=== PATIENT | male | born 1970 | race Caucasian/White ===

== ENCOUNTER 2019-09-09 23:55 | Emergency (ER) | payer OTHER ==
[2019-09-09] MEDS ORDERED: DEXAMETHASONE SOD PHOSPHATE 10 MG/1 ML VIAL IM ONE (23:57)
[2019-09-09] MEDS ORDERED: ALBUTEROL SO4 0.083% IH SOL 2.5 MG/3 ML VIAL.NEB. NEB ONE (23:57)
--- NOTE | 2019-09-10 00:04 | PDOC ---
History of Present Illness - General Chief Complaint: Asthma Stated Complaint: ASTHMA History Source: Patient, Unavil. due to pt. cond. - History of Present Illness Initial Comments: 09/10/19 04:50 asthma exacerbation, worse acutely Is this a multiple visit Asthma Patient?: Yes Timing/Duration: reports: just prior to arrival Severity: reports: moderate Possible Cause: Yes: occasional episodes Modifying Factors: improves with: albuterol inhaler Associated Symptoms: denies: fever/chills Past History - Past Medical History Allergies/Adverse Reactions: Allergies Allergy/AdvReac Type Severity Reaction Status Date / Time No Known Allergies Allergy Verified 09/10/19 00:18 Home Medications: Ambulatory Orders Fluticasone/Vilanterol [Breo Ellipta 100-25 Mcg INH] 1 each IH DAILY 09/10/19 Prednisone 40 mg PO DAILY #27 tablet 09/10/19 Salmeterol/Fluticasone [Advair 100Mcg/50Mcg -] 1 inh PO BID 09/10/19 Other medical history: asthma Respiratory Specific PMHX - Complaint Specific PMHX Hx Airway Support: No Hx Intubation: No Hx Asthma: Yes Hx Smoking Exposure: No Review of Systems - Review of Systems All Other Systems: Reviewed and Negative *Physical Exam - Physical Exam General Appearance: Yes: Nourished, Appropriately Dressed HEENT: negative: Pharyngeal Erythema, Tonsillar Exudate Neck: negative: Lymphadenopathy (R), Lymphadenopathy (L) Respiratory/Chest: positive: Wheezing Cardiovascular: positive: Regular Rhythm Gastrointestinal/Abdominal: negative: Tender Musculoskeletal: positive: Normal Inspection Extremity: positive: Normal Capillary Refill Integumentary: positive: Normal Color Medical Decision Making - Medical Decision Making 09/10/19 04:58 AAE steroids, bronchodilator at the time of ED discharge, [id number] amb in ED without distress Discharge - Discharge Information Problems reviewed: Yes Clinical Impression/Diagnosis: Asthma Qualifiers: Asthma severity: moderate Asthma persistence: unspecified Asthma complication type: with acute exacerbation Qualified Code(s): J45.901 - Unspecified asthma with (acute) exacerbation Condition: Stable Disposition: HOME - Additional Discharge Information Prescriptions: Prednisone 40 mg PO DAILY #27 tablet - Follow up/Referral - Patient Discharge Instructions Patient Printed Discharge Instructions: Asthma -- Adult - Post Discharge Activity
[2019-09-10 00:25] VITALS: TEMP 97.6; BMI 25.9
[2019-09-10 00:56] VITALS: BP 148/92; PULSE 94
== END 2019-09-10 02:00 | disposition home or self-care (01) ==
LOC: FER 23:55
PROC: 3E023GC Introduction of Other Therapeutic Substance into Muscle, Percutaneous Approach (ICD-10-PCS; principal; 2019-09-09)
PROC: 3E0F7GC Introduction of Other Therapeutic Substance into Respiratory Tract, Via Natural or Artificial Opening (ICD-10-PCS; 2019-09-09)
DX: J45.901 Unspecified asthma with (acute) exacerbation (principal)
CPT/HCPCS: 99281-25; J1100

== ENCOUNTER 2022-12-12 20:49 | Emergency (ER) | payer OTHER ==
[2022-12-12] MEDS ORDERED: predniSONE 20 MG TABLET (UD) PO ONE (21:00)
[2022-12-12] MEDS ORDERED: predniSONE 20 MG TABLET (UD) ONE (21:01)
[2022-12-12] MEDS ORDERED: ALBUTEROL SO4 2.5/IPRATROPIUM 0.5 INH SOL 3 ML VIAL.NEB. NEB ONE (21:02)
[2022-12-12] MEDS: ALBUTEROL SO4 2.5/IPRATROPIUM 0.5 INH SOL 3 ML VIAL.NEB. NEB SCH ×3 (21:05→21:53)
[2022-12-12 21:17] VITALS: BP 160/95; PULSE 120; RESP 22; TEMP 97.7; BMI 23.7
== END 2022-12-12 22:27 | disposition home or self-care (01) ==
LOC: FER 20:49
PROC: 3E0F7GC Introduction of Other Therapeutic Substance into Respiratory Tract, Via Natural or Artificial Opening (ICD-10-PCS; principal; 2022-12-12)
DX: J45.901 Unspecified asthma with (acute) exacerbation (principal)
CPT/HCPCS: 99285-25